=== PATIENT | female | born 2005 | race Caucasian/White ===

== ENCOUNTER 2023-05-15 13:28 | Emergency (ER) | payer OTHER, SELFPAY ==
--- NOTE | 2023-05-15 13:30 | ED_ITS ---
HPI - General Adult General Chief complaint: Nausea/Vomiting/Diarrhea Stated complaint: Vomiting 3 days no appetite Time Seen by Provider: 05/15/23 13:57 Source: patient and family Mode of arrival: ambulatory Limitations: no limitations History of Present Illness HPI narrative: This is a 17-year-old female who has previously healthy who presents to the ER with complaints of 2 days of headache, vomiting, diarrhea and chills. Patient denies any recent travel or sick contact. No abdominal pain, fevers, chills, urinary symptoms. Related Data Previous Rx's Medication Instructions Recorded ondansetron 4 mg disintegrating 4 mg PO Q6H PRN nausea and 05/15/23 tablet vomiting #14 tabs Allergies Allergy/AdvReac Type Severity Reaction Status Date / Time No Known Allergies Allergy Verified 05/15/23 13:32 Review of Systems 2 Review of Systems: Yes all other systems are reviewed and are negative Constitutional: Constitutional: Reports no additional constitutional complaints, Denies body ache(s), Reports chills, Denies fever(s), Reports headache(s) and Denies weakness Eyes: Eyes: Reports no additional eye complaints and Denies change in vision ENT: Reports system reviewed and no additional complaints, except as documented, Denies dizziness, Reports headache(s), Denies nasal congestion, Denies nasal discharge and Denies neck pain Cardiovascular: Cardiovascular: Reports no additional cardiovascular complaints, Denies chest pain, Denies leg edema and Denies dyspnea Respiratory: Respiratory: Reports no additional respiratory complaints, Denies cough and Denies dyspnea Gastrointestinal: Gastrointestinal: Reports no additional gastrointestinal complaints, Denies abdominal pain, Reports diarrhea, Reports nausea and Reports vomiting Genitourinary: Genitourinary: Reports no additional female genitourinary complaints and Denies urinary incontinence Musculoskeletal: Musculoskeletal: Reports no additional musculoskeletal complaints, Denies back pain, Denies arthralgias, Denies joint swelling, Denies neck pain, Denies numbness and Denies tingling Integumentary/Breasts: Skin/Breast: Reports system reviewed and no additional complaints, except as docu and Denies rash Neurologic: Reports system reviewed and no additional complaints, except as documented, Denies Abnormal speech present, Denies dizziness, Reports headache(s), Denies numbness, Denies tingling and Denies weakness [facility] Past Medical History Attestation statement: The following information was validated with the patient. Source: old records reviewed and nursing notes reviewed Social History Social History Advance Directives: No Advance Directives Information Provided: No Physical Exam ED Vital Signs: Vital Signs - 24 hr 05/15/23 13:32 05/15/23 14:56 Temperature 98.0 F Pulse Rate 69 62 Respiratory Rate 18 18 Blood Pressure 130/86 117/69 Pulse Oximetry 97 100 Oxygen Delivery Method Room Air Room Air BMI result Body Mass Index 23.3 Const General: cooperative, healthy appearing, comfortable and no acute distress Orientation/consciousness: patient oriented x3 Limitations: no limitations HENMT Head: Yes normal to inspection Ears: hearing grossly normal bilaterally and TM's normal bilaterally General nose exam: Normal external nose present Face and sinus: Yes normal facial exam Mouth: Normal oral and palatal mucosa present Throat: Yes posterior oropharynx normal, Yes tonsils normal and Yes uvula midline Eyes General: appearance normal, both eyes and all related structures Pupils: Equal, round and reactive pupils present Neck Neck: Yes normal visual inspection, Yes full ROM, Yes no lymphadenopathy and Yes no meningeal signs Chest Chest palpation & inspection: normal inspection of the chest Resp Effort & Inspection: normal respiratory effort Auscultation: clear to auscultation bilaterally Cardio Rate: regular rate Rhythm: regular rhythm Peripheral pulses: Peripheral pulses 2+ throughout GI Inspection: Yes normal to inspection Palpation (GI): Soft to palpation and nontender Auscultation: normal bowel sounds Back/Spine/Pelvis Thoracic/Lumbar Spine: thoracic and lumbar spine normal to inspection Skin General skin exam: no rashes or lesions noted Neuro General: patient oriented x3, no meningeal signs, no focal motor deficits and normal sensation to monofilament Cranial nerves: Yes Equal, round and reactive pupils present Cognition (Neuro): normal cognition Speech: No Abnormal speech present Gait exam (Neuro): Normal gait present Motor exam (neuro): 5/5 motor strength present throughout Extrem General: Yes normal to inspection Course Course Course Narrative: RME performed by Anamika Wolfe PA-C. Patient is a 17 year old assigned female at presenting to the emergency department with nausea and vomiting. Labs and swabs ordered. Patient placed back in the waiting room pending room availability and results. Reevaluation(s) Reevaluation #1: UA shows trace ketones otherwise unremarkable. Labs are unremarkable. test is negative. RSV is positive. No hypoxia or tachypnea. Patient is tolerating cathryn mary with no additional vomiting episodes. Repeat abdominal exam is benign. Patient will be discharged home with Andrea coelho.r.janae. Reviewed worrisome signs and symptoms of when to return to the emergency room. Comfortable plan for discharge home. Medications Administered Discontinued Medications Generic Name Dose Route Start Last Admin Trade Name Freq PRN Reason Stop Dose Admin Sodium Chloride 1,000 mls @ 999 mls/hr 05/15/23 14:09 05/15/23 15:30 Ns IV 05/15/23 15:09 Infused .Q1H1M STA Infusion Ondansetron HCl 4 mg 05/15/23 14:09 05/15/23 14:21 Ondansetron Hcl 4 Mg/2 Ml Vial IVPUSH 05/15/23 14:10 4 mg ONCE ONE Administration Medical Decision Making Medical Decision Making [facility] Narrative: This is a 17-year-old female who has previously healthy who presents to the ER with complaints of 2 days of headache, vomiting, diarrhea and chills.? Patient denies any recent travel or sick contact.? No abdominal pain, fevers, chills, urinary symptoms. On exam no focal abdominal tenderness. Patient reports unable to tolerate p.o. due to vomiting. Therefore we will obtain labs, UA, urine , viral testing. Will place PIV and give antiemetic and IV fluids Differential Diagnosis Differential Diagnoses: The differential diagnosis associated with the presentation includes Low concern for acute appendicitis with no focal abdominal pain Gastroenteritis Viral syndrome Admission/Observation Consideration of admission/observation: Escalation of care including admission/observation considered no intractable vomiting, electrolyte abnormality requiring IVF, electrolyte abnormality and/or admission No hypoxia, not required supplemental oxygen for RSV status Lab Data [facility] Lab Attestation statement: I reviewed the patient's lab results. 05/15/23 14:29 05/15/23 14:29 Labs: Lab Results 05/15/23 05/15/23 05/15/23 Range/Units 13:43 14:29 15:45 WBC 5.3 (4.8-10.8) X10*3/uL RBC 4.66 (4.20-5.50) X10*6/uL Hgb 13.4 (12.0-16.0) g/dl Hct 39.5 (37.0-47.0) % MCV 84.8 (80.0-98.0) fL MCH 28.8 (27.0-33.0) pg MCHC 33.9 (31.0-35.0) g/dl RDW 12.1 (11.0-16.0) % Plt Count 222 (160-400) X10*3/uL MPV 11.4 (9.4-12.3) fL Immature Gran % (Auto) 0.2 (0.0-0.4) % Neut % (Auto) 79.0 H (45-73) % Lymph % (Auto) 11.2 L (20-40) % [place] % (Auto) 9.0 (2-11) % Eos % (Auto) 0.4 (0-4) % Baso % (Auto) 0.2 (0-2) % Lymph # (Auto) 0.6 L (1.2-4.9) X10*3/uL [place] # (Auto) 0.5 (0.1-1.2) X10*3/uL Eos # (Auto) 0.0 (0.0-0.4) X10*3/uL Baso # (Auto) 0.0 (0.0-0.2) X10*3/uL Abs Immat Gran (auto) 0.01 (0.00-0.03) X10*3/uL Absolute Neuts (auto) 4.2 (2.0-8.3) x10*3/uL Absolute Nucleated RBC 0.000 (0.0-0.012) X10*3/uL Nucleated RBC % (auto) 0.0 (0.0-0.2) /100WBC Sodium 139 (135-145) mmol/L Potassium 4.3 (3.3-5.1) mmol/L Chloride 104 (96-108) mmol/L Carbon Dioxide 26 (22-29) mmol/L Anion Gap 13 (12-20) BUN 11 (9-16) mg/dL Creatinine 0.75 (0.5-1.4) mg/dL Estim Creat Clear Calc 104.1 Estimated GFR > 60 Random Glucose 126 H (60-115) mg/dL Calcium 9.8 (8.4-10.2) mg/dL Magnesium 2.0 (1.6-2.6) mg/dL Total Bilirubin 1.3 H (0.0-1.0) mg/dL AST 14 (5-31) U/L ALT 5 (0-31) U/L Alkaline Phosphatase 64 (39-117) U/L Total Protein 7.8 (6.5-8.0) g/dL Albumin 4.6 (3.5-5.0) g/dL Lipase 10 (8-78) U/L Beta HCG, Quant < 2 mIU/mL Urine Color Yellow Urine Appearance Clear Urine pH 6.0 (5.0-9.0) Ur Specific [place] 1.010 (1.005-1.025) Urine Protein Trace (Neg-Trace) mg/dL Urine Glucose (UA) Negative (Negative) mg/dL Urine Ketones 15 (Negative) mg/dL Urine Blood Negative (Negative) Urine Nitrite Negative (Negative) Ur Leukocyte Esterase Negative (Negative) Influenza Type A (PCR) NEGATIVE (Negative) Influenza Type B (PCR) NEGATIVE (Negative) RSV RNA Qual (PCR) POSITIVE A (Negative) SARS-CoV-2 RNA (RT-PCR) NEGATIVE (Negative) Independent Historian Clinical information obtained from an independent historian. History obtained from or confirmed by: Friend Tests considered The following testing was considered but not selected: No focal abdominal pain to suggest need for CT abdomen and pelvis Discharge Plan Discharge Clinical Impression: Respiratory syncytial virus (RSV) Patient Disposition: Home, Self-Care Instructions: Respiratory Syncytial Virus (ED) Additional Instructions: Start with clear liquids and advance her diet as tolerated. Return for any worsening symptoms Testing for covid/flu are negative Blood work is re-assuring Prescriptions: New ondansetron 4 mg tablet,disintegrating 4 mg PO Q6H PRN (Reason: nausea and vomiting) Qty: 14 0RF Referrals: Physician,Unknown J [Primary Care Provider] - 1 week Stand Alone Forms: Work/School Release
[2023-05-15 13:32] VITALS: BP 130/86; PULSE 69; RESP 18; TEMP 36.7; O2SAT 97; BMI 23.3
--- OUTSIDE RECORDS SUMMARY | 2023-05-15 14:03 | XMS_ITS | Continuity of Care Document ---
Author Name Unknown Organization [facility] ter Address [address] [place] [id number]- Care Team Providers Care Cooler Service Supervisor Name Role Phone George Mcdonald MD, Zeina Primary Care Tarsha watson [place] [facility] [place] 12/10/21 - 12/10/[address] [address]- Discharge Disposition: A-D/C Walkout Attending Physician: Not on Staff, Attending MD Admitting Physician: Not on Staff, Admitting MD Referring Physician: Not on Staff, Referring MD Allergies, Adverse Reactions, Alerts No Known Allergies Immunizations Given and Recorded Vaccine Date Status Refusal Reason influenza virus vaccine, live 06/18/13 Given influenza virus vaccine, live 05/17/12 Given influenza virus vaccine, inactivated 09/08/11 Give n diphtheria/tetanus/pertussis, acel(DTaP) 08/02/07 Given diphtheria/tetanus/pertussis, acel(DTaP) 01/08/05 Given diphtheria/tetanus/pertussis, acel(DTaP) 01/16/04 Given diphtheria/tetanus/pertussis, acel(DTaP) 03 Given diphtheria/tetanus/pertussis, acel(DTaP) 03 Given Varicella Virus Vaccine 08/02/07 Given Varicella Virus Vaccine 08/10/04 Given Measles/Mumps/Rubella Virus Vaccine 08/02/07 Given Measles/Mumps/Rubella Virus Vaccine 08/10/04 Given Poliovirus Vaccine, Inactivated 08/02/07 Given Poliovirus Vaccine, Inactivated 01/08/05 Given Poliovirus Vaccine, Inactivated 01/16/04 Given Poliovirus Vaccine, Inactivated 03 Given tetanus/diphtheria/pertussis, acel(Tdap) 1 08/02/07 Given Haemophilus B conjugate (HbOC) vaccine 03/08/06 Gi xenia Haemophilus B conjugate (HbOC) vaccine 01/16/04 Gi xenia Haemophilus B conjugate (HbOC) vaccine 03 Gi xenia Haemophilus B conjugate (HbOC) vaccine 03 Gi xenia hepatitis B pediatric vaccine 01/16/04 Given hepatitis B pediatric vaccine 03 Given hepatitis B pediatric vaccine 03 Given pneumococcal 13-valent vaccine 01/16/04 Given pneumococcal 13-valent vaccine 03 Given pneumococcal 13-valent vaccine 03 Given 1Result Comment: error Medications ibuprofen 400 mg oral tablet 1 tablet = 400 mg, By Mouth, Every 6 hours, PRN for pain, with food or milk, # 20 tablet, 0 Refills, Maintenance, 11/11/14 19:58:27, Tablet Start Date: 11/11/14 Stop Date: 11/14/14 Status: Ordered Melatonin By Mouth, Daily at bedtime, PRN Sleep, 0 Refills, Maintenance Start Date: 06/04/13 Status: Ordered Problem List Condition Effective Dates Status Health Status Inform ant Academic underachievement(Confirmed) 1 Active Obstructive sleep apnea syndrome(Confirmed) Active 1?ADHD or other learning disability. Further workup under way. Results Radiology Reports * Exam Date Time Procedure Performing Provider Status 12/10/21 6:10 AM Knee 1 or 2 Views Right Jayden Rodriguez ph; Auth (Verified) Notes: (Knee 1 or 2 Views Right) Reason For Exam: Pain RESULT: Knee 1 or 2 Views Right Knee 1 or 2 Views Right, 2 views Hx of Present Illness: R knee pain; Reason: Pain; Clinical Question(s): Fracture; Special Instructions: Patella ([place]) COMPARISON: None. FINDINGS: No evidence of fracture or dislocation. IMPRESSION: Normal. WSN: [id number] Ordering Physician: Khanh Mallory Dictated By: Shayan Monge MD Dictated Date/Time: 12/10/21 8:11 am Reviewed By: Shayan Monge MD Signed By: Shayan Monge MD Signed Date/Time: 12/10/21 8:11 am Transcribed By: KIT Transcribed Date/Time: 12/10/21 8:11 am Vital Signs Most recent to oldest [Reference Range]: 1 Oxygen Saturation [94-100 %] 99 % (12/10/21 5:49 AM) Pulse Rate [55-90 bpm] 94 bpm *H* (12/10/21 5:49 AM) Blood Pressure [71-110/30-71 mm Hg] 130/ 73mm Hg *H* (12/10/21 5:49 AM) Respiratory Rate [16-30 br/min] 18 br/mi n (12/10/21 5:49 AM) Temperature [96.8-100.4 DegF] 98.3 DegF (12/10/21 5:49 AM) Mode of Delivery (Oxygen) Room air (12/10/21 5:49 AM) Blood pressure sites Arm, right (12/10/21 5:49 AM) Temperature Route Oral (12/10/21 5:49 AM)
--- OUTSIDE RECORDS SUMMARY | 2023-05-15 14:03 | XMS_ITS | Continuity of Care Document ---
Author Name Unknown Organization [facility] ter Address [address] [place] [id number]- Care Team Providers Care Reel Operator Name Role Phone George Mcdonald MD, Zeina Primary Care Tarsha watson En[place] [facility] [place] Date(s): 11/25/22 - 11/25/[address] [address]- Discharge Disposition: A-D/C Walkout Attending Physician: Not [...] Date: 06/04/13 Status: Ordered Problem List Condition Confirmation Course Effective Dates Status H ealth Status Informant Academic underachievement 1 Confirmed Active Obstructive sleep apnea syndrome Confirmed Active 1?ADHD or other learning disability. Further workup under way. Vital Signs Most recent to oldest [Reference Range]: 1 2 3 Oxygen Saturation [94-100 %] 100 % (11/25/22 5:34 PM) 100 % (11/25/22 3:25 PM) 98 % (11/25/22 1:23 PM) Pulse Rate [55-90 bpm] 65 bpm (11/25/22 5:34 PM) 72 bpm (11/25/22 3:25 PM) 93 bpm *H* (11/25/22 1:23 PM) Blood Pressure [90-138/55-84 mm Hg] 129/68mm Hg (11/25/22 5:34 PM) 124/68mm Hg (11/25/22 3:25 PM) 134/92mm Hg (11/25/22 1:23 PM) Respiratory Rate [16-30 br/min] 18 br/min (11/25/22 5:34 PM) 18 br/min (11/25/22 1:23 PM) Temperature [96.8-100.4 DegF] 97.9 DegF (11/25/22 5:34 PM) 97.9 DegF (11/25/22 3:25 PM) 98.1 DegF (11/25/22 1:23 PM) Mode of Delivery (Oxygen) Room air (11/25/22 5:34 PM) Room air (11/25/22 3:25 PM) Room air (11/25/22 1:23 PM) Blood pressure sites Arm, right (11/25/22 5:34 PM) Arm, right (11/25/22 3:25 PM) Arm, left (11/25/22 1:23 PM) Temperature Route Oral (11/25/22 5:34 PM) Oral (11/25/22 3:25 PM) Oral (11/25/22 1:23 PM) Patient Care team information Care Team Personnel Name: Zeina Gauthier MD Position: [facility] General Pediatrics MD Member Role: PCP Address: Address: [address] [place] [address], [address] [facility] [address] Name: Aron Nieto MD Position: [facility] Physician (General Medicine) Member Role: Lifetime Consulting Physician Address: Address: [address] [place] [address], [address] Care Team Related Persons Name: EDI CRAWFORD Address: [address] [place] [address] Name: EDI CRAWFORD Address: [address] [place] [address]
[2023-05-15] MEDS: 0.9 % Sodium Chloride 1,000 ML 999 ML IV (14:21)
[2023-05-15] MEDS: ondansetron HCL 4 MG/2 ML VIAL IVPUSH (14:21)
[2023-05-15 14:32] LABS: Influenza A PCR NEGATIVE (Negative); Influenza B PCR NEGATIVE (Negative); Resp Syncy Virus RNA Qual PCR POSITIVE (Negative); SARS COV2 PCR INHOUSE NEGATIVE (Negative)
[2023-05-15 14:33] LABS: MANUAL DIFF FLAG NO
[2023-05-15 14:36] LABS: Basophils Percent Auto 0.2 % (0-2); Eosinophils Percent Auto 0.4 % (0-4); Hematocrit 39.5 % (37.0-47.0); Hemoglobin 13.4 g/dl (12.0-16.0); Imm Gran Abs Auto 0.01 X10*3/uL (0.00-0.03); Imm Gran Pct Auto 0.2 % (0.0-0.4); Lymphocytes Absolute Auto 0.6 X10*3/uL (1.2-4.9); Lymphocytes Percent Auto 11.2 % (20-40); Mean Corpuscular HGB Conc 33.9 g/dl (31.0-35.0); Mean Corpuscular Hemoglobin 28.8 pg (27.0-33.0); Mean Corpuscular Volume 84.8 fL (80.0-98.0); Mean Platelet Volume 11.4 fL (9.4-12.3); Monocytes Absolute Auto 0.5 X10*3/uL (0.1-1.2); Neutrophils Absolute Auto 4.2 x10*3/uL (2.0-8.3); Platelet Count 222 X10*3/uL (160-400); Red Blood Count 4.66 X10*6/uL (4.20-5.50); Red Cell Distribution Width 12.1 % (11.0-16.0); White Blood Count 5.3 X10*3/uL (4.8-10.8)
[2023-05-15 14:56] VITALS: BP 117/69; PULSE 62; RESP 18; O2SAT 100
[2023-05-15 14:57] LABS: Alanine Aminotransferase 5 U/L (0-31); Albumin Level 4.6 g/dL (3.5-5.0); Alkaline Phosphatase 64 U/L (39-117); Anion Gap 13 (12-20); Aspartate Amino Transferase 14 U/L (5-31); Bilirubin Total 1.3 mg/dL (0.0-1.0); Blood Urea Nitrogen 11 mg/dL (9-16); Calcium 9.8 mg/dL (8.4-10.2); Carbon Dioxide 26 mmol/L (22-29); Chloride 104 mmol/L (96-108); Creatinine Clr Calc Pharmacy 104.1; Estimated Glomerular Filt Rate > 60; Glucose Random 126 mg/dL (60-115); Lipase 10 U/L (8-78); Potassium 4.3 mmol/L (3.3-5.1); Sodium 139 mmol/L (135-145); Total Protein 7.8 g/dL (6.5-8.0)
[2023-05-15 15:10] LABS: HCG Quantitative < 2 mIU/mL
--- NOTE | 2023-05-15 15:30 | PC.NURSE ---
patient given cathryn mary and crackers for PO trial.
[2023-05-15 15:53] LABS: Appearance Urine Clear; Color Urine Yellow; Glucose Urine UA Negative (Negative); Leukocyte Esterase Urine Negative (Negative); Nitrite Urine Negative (Negative); Urine Blood Negative (Negative); Urine Ketones 15 mg/dL (Negative); Urine Protein Trace mg/dL (Neg-Trace)
== END 2023-05-15 16:11 | disposition home or self-care (01) ==
PROVIDERS: Physician Assistant Medical; Emergency Provider Emergency Medicine Emergency Medical Services
DX: R11.2 Nausea with vomiting, unspecified (principal); B97.4 Respiratory syncytial virus as the cause of diseases classified elsewhere; R51.9 Headache, unspecified; Z20.822 Contact with and (suspected) exposure to COVID-19; Z20.828 Contact with and (suspected) exposure to other viral communicable diseases
CPT/HCPCS: 0241U; 36415; 80053; 81003; 83690; 83735; 84702; 85025; 96361; 96374; 99284; J2405

== ENCOUNTER 2024-03-05 09:46 | Emergency (ER) | payer OTHER, SELFPAY ==
--- NOTE | ~2024-03-05 | CT_ITS ---
EXAMINATION: CT ABDOMEN AND PELVIS WITH CONTRAST CLINICAL INFORMATION: abd pain high bili COMPARISON: None. TECHNIQUE: Multidetector volumetric imaging was performed from the superior aspect of the liver through the pubic symphysis following administration of 85 mL Omnipaque 300 intravenous contrast. Sagittal and coronal reformatted images were obtained on the technologist workstation.. This CT examination was performed using dose optimization techniques as appropriate, variously including the following: *Automated exposure control *Adjustment of mA and/or kV according to patient size (this includes techniques or standardized protocols for targeted exams where dose is matched to indication/reason for exam; i.e. extremities or head) *Use of iterative reconstruction technique DLP: 306 mGy-cm FINDINGS: LUNG BASES: The visualized lung bases are unremarkable. LIVER, GALLBLADDER, AND BILIARY TREE: The liver is normal in size, shape, and attenuation. No focal hepatic lesion or biliary ductal dilatation is present. The gallbladder is unremarkable with no evidence of radiopaque gallstones, gallbladder wall thickening, or obvious pericholecystic inflammatory changes. PANCREAS: Unremarkable. SPLEEN: Unremarkable. ADRENAL GLANDS: Unremarkable. KIDNEYS AND URETERS: The kidneys are normal in size, shape, and attenuation. No hydronephrosis, hydroureter, or perinephric stranding. No calculi. BLADDER: Unremarkable. GASTROINTESTINAL TRACT: The small and large bowel are unremarkable. The appendix is unremarkable. ABDOMINAL WALL: No significant hernia is appreciated. LYMPHOVASCULAR STRUCTURES: No lymphadenopathy. The aorta is unremarkable. PELVIC VISCERA: Physiologic changes seen with small amount of likely physiologic free fluid in the dependent pelvis OSSEOUS STRUCTURES: Unremarkable. CT/CT abdomen pelvis w IV con IMPRESSION: I do not appreciate any acute intra-abdominal process. Physiologic changes seen. Specifically I do not appreciate any discrete abnormality in the region of the liver or biliary system. Electronically signed by: Shayan Sotelo MD 03/05/2024 04:09 PM EDT RP
[2024-03-05 09:59] VITALS: BP 141/88; PULSE 66; RESP 18; TEMP 36.7; O2SAT 100; BMI 21.5
[2024-03-05 10:27] LABS: MANUAL DIFF FLAG NO
[2024-03-05 10:29] LABS: Basophils Percent Auto 0.7 % (0-2); Eosinophils Absolute Auto 0.1 X10*3/uL (0.0-0.4); Eosinophils Percent Auto 3.1 % (0-4); Hematocrit 38.4 % (37.0-47.0); Hemoglobin 13.3 g/dl (12.0-16.0); Imm Gran Abs Auto 0.01 X10*3/uL (0.00-0.03); Imm Gran Pct Auto 0.2 % (0.0-0.4); Lymphocytes Percent Auto 22.1 % (20-40); Mean Corpuscular HGB Conc 34.6 g/dl (31.0-35.0); Mean Corpuscular Hemoglobin 30.2 pg (27.0-33.0); Mean Corpuscular Volume 87.3 fL (80.0-98.0); Mean Platelet Volume 11.1 fL (9.4-12.3); Monocytes Absolute Auto 0.5 X10*3/uL (0.1-1.2); Monocytes Percent Auto 9.8 % (2-11); Neutrophils Absolute Auto 2.9 x10*3/uL (2.0-8.3); Neutrophils Percent Auto 64.1 % (45-73); Platelet Count 238 X10*3/uL (160-400); Red Cell Distribution Width 12.3 % (11.0-16.0); White Blood Count 4.6 X10*3/uL (4.8-10.8)
[2024-03-05 10:54] LABS: Alanine Aminotransferase 10 U/L (0-31); Albumin Level 4.6 g/dL (3.5-5.0); Alkaline Phosphatase 53 U/L (39-117); Anion Gap 14 (12-20); Aspartate Amino Transferase 16 U/L (5-31); Bilirubin Total 2.2 mg/dL (0.0-1.0); Blood Urea Nitrogen 7 mg/dL (9-16); Calcium 9.9 mg/dL (8.4-10.2); Carbon Dioxide 24 mmol/L (22-29); Chloride 106 mmol/L (96-108); Creatinine Clr Calc Pharmacy 99.3; Estimated Glomerular Filt Rate > 60; Glucose Random 105 mg/dL (60-115); Sodium 140 mmol/L (135-145); Total Protein 7.3 g/dL (6.5-8.0)
--- NOTE | 2024-03-05 13:30 | MHC.EDTECH ---
provided patient with urine cup for sample with instructions on how to perform a clean catch. Patient expressed understanding.
[2024-03-05 13:50] LABS: Appearance Urine Clear; Color Urine Yellow; Glucose Urine UA Negative (Negative); Leukocyte Esterase Urine Small (1+) (Negative); Nitrite Urine Negative (Negative); UMIC TRIGGER UACC YES; Urine Blood Large (3+) (Negative); Urine Ketones >=160 mg/dL (Negative); Urine Protein 30 (1+) mg/dL (Neg-Trace)
[2024-03-05 13:52] LABS: Bacteria Urine None Seen (None Seen); Hyaline Casts Urine 0-2 /LPF (0-2); RBC Urine >20 /HPF (0-2); UACC Culture Trigger YES
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
[2024-03-05 14:08] LABS: UPreg QC Valid YES
[2024-03-05 14:09] LABS: Urine Pregnancy NEGATIVE (NEGATIVE)
[2024-03-05] MEDS: iohexoL 350 MG/ML 100 ML INFUS..BTL IV (15:23)
[2024-03-05 16:36] VITALS: BP 117/75; PULSE 59; RESP 14; TEMP 36.8; O2SAT 99
== END 2024-03-05 16:40 | disposition home or self-care (01) ==
PROVIDERS: Physician Assistant; Emergency Provider Emergency Medicine
DX: F41.9 Anxiety disorder, unspecified (principal); R11.2 Nausea with vomiting, unspecified; R19.7 Diarrhea, unspecified
CPT/HCPCS: 36415; 74177; 80053; 81001; 81025; 85025; 87086; 87147; 99282; 99284; Q9967

== ENCOUNTER 2024-08-12 09:40 | Emergency (ER) | payer MEDICAID, SELFPAY ==
--- NOTE | 2024-08-12 | ECG_ITS ---
Test Reason : ABD PAIN Blood Pressure : */* mmHG Vent. Rate : 64 BPM Atrial Rate : 64 BPM P-R Int : 118 ms QRS Dur : 84 ms QT Int : 406 ms P-R-T Axes : 64 73 51 degrees QTcB Int : 418 ms Normal sinus rhythm ST elevation, consider early repolarization Borderline ECG No previous ECGs available Referred By: Generic ED Physician Electronically Signed By: BOO SAXENA MD
[2024-08-12 09:43] VITALS: BP 151/98; PULSE 62; RESP 18; TEMP 36.1; O2SAT 100; BMI 22.9
--- OUTSIDE RECORDS SUMMARY | 2024-08-12 09:58 | XMS_ITS | Encounter Summary ---
Author Organization [facility] Address [address] [place] [address] Phone Care Team Providers Care Tipping Machine Operator Automatic Name Role Phone Zeina Gauthier MD Primary Care Pro vider Encounter Details Date Type Department Care Team (Late st Contact Info) Description 09/01/2017 Conversion Encounter [facility] [address] [phone] Zeina Gauthier MD [address] [address] Social History Tobacco Use Types Packs/Day Years Used Date Smoking Tobacco: Never Comments:Never Comments Unknown Sex and Gender Information Value Date Recorded Sex Assigned at Not on file Legal Sex Female 12:17 PM EST Gender Identity Female 07/20/2023 10:54 PM EST Sexual Orientation Straight 03/01/2019 3: 38 PM EDT documented as of this encounter Plan of Treatment Not on file documented as of this encounter Visit Diagnoses Not on filedocumented in this encounter Care Teams Tipping Machine Operator Automatic Relationship Specialty Start Date End Date Zeina Gauthier MD [address] [address] PCP - General 06/15/17 documented as of this encounter
--- OUTSIDE RECORDS SUMMARY | 2024-08-12 09:58 | XMS_ITS | Clinical Summary ---
Author Organization [facility] Address [address] [facility] [address] [place] [address] Phone Care Team Providers Care Marine Electronics Repairer Name Role Phone Zeina Kramer MD Primary Care Pro vider Allergies No known active allergies Medications No known medications Active Problems Problem Noted Date Diagnosed Date Academic underachievement 02/22/20232022 Overview (02/22/2023): ?ADHD or other learning disability. Further workup under way. Backache 02/22/2023 02/22/2023 Leukopenia 02/22/2023 02/22/2023 Obstructive sleep apnea syndrome 02/22/2023 02/22/2023 Proteinuria 02/22/2023 02/22/2023 Sterile pyuria 02/22/2023 02/22/2023 Bacterial vaginosis 12/09/2022 02/22/2023 Current drinker 11/25/2022 02/22/2023 Overview (02/22/2023): [facility] emergency room visit for nausea, LWBS, too long wait. At increased risk of sexually transmitted infect ion 02/06/2020 Overview (02/22/2023): Continues prior unsafe sex behaviors. Safe sex discussed at length Last Assessment & Plan: Pt education on abstinence or consistent condom use; pt has consultation w/ electrotype caster later this month Dysmenorrhea 02/06/2020 02/22/2023 Overview (02/22/2023): Last Assessment & Plan: See menstrual hx; pt has appt consult w/ Dr. Cavanaugh's electrotype caster group later this month Wears glasses 02/06/2020 02/22/2023 Adjustment disorder with mix ed disturbance of emotions AND conduct 02/28/2018 02/22/2023 Overview (02/22/2023): Last Assessment & Plan: She is adjusting much anuja now, no therapist At this point she does talk to counselor at school sometimes Problem behavior 02/07/2018 02/22/2023 Immunizations Name Administration Dates Next Due DTaP 08/02/2007, 5,01/16/2004,10/29,2003 HPV, Unspecified 10/18/2016,03/25/2016, 6 Hep A, 2 Dose 10/18/2016,03/25/2016 Hep B, Adolescent or Pediatric 01/16/2004,2003,2003 HiB 03/08/2006, 4,2003,08/28 Hib (HbOC) 03/08/2006, 4,2003,08/28 IPV 08/02/2007, 5,01/16/2004,08/28 Influenza Split High Dose Pr eservative Free IM 05/03/2016 Influenza TIV (IM) 06/14/2014 Influenza, Quadrivalent, Intranasal 06/18/2013,1 07/17/2011 Influenza, Quadrivalent, Pre servative Free 10/10/2020,03/25/2016,08/07/2015 Influenza, Unspecified 09/08/2011,09/08/2011 MMR 08/02/2007,08/10/2004 Meningococcal MCV4P 02/06/2020,08/07/2015 Pneumococcal Conjugate 13-Valent 01/16/2004,10/03,2003 Tdap 08/07/2015,08/02/2007 Varicella 08/02/2007,08/10/2004 Family History Relation Status Comments Father Alive Mother Alive Social History Tobacco Use Types Packs/Day Years Used Date Smoking Tobacco: Never Smokeless Tobacco: Current Tobacco Cessation:Ready to Q uit: Not Asked; Counseling Given: Not Answered Alcohol Use Standard Drinks/Week Comments Not Currently 0 (1 standard drink = 0.6 oz pur e alcohol) Comments Unknown Sex and Gender Information Value Date Recorded Sex Assigned at Not on file Legal Sex Female 4:43 PM EST Gender Identity Not on file Sexual Orientation Not on file Last Filed Vital Signs Vital Sign Reading Time Taken Comments Blood Pressure 120/65 02/24/2023 12:27 PM EDT Pulse 65 02/24/2023 12:27 PM EDT Temperature - - Respiratory Rate - - Oxygen Saturation 99% 02/24/2023 12:27 PM EDT Inhaled Oxygen Concentration - - Weight 64.7 kg (142 lb 9.6 oz) 02/24/2023 12:27 PM EDT Height 165.1 cm (5' 5 ) 02/24/2023 12:27 PM EDT Body Mass Index 23.73 02/24/2023 12:27 PM EDT Plan of Treatment Health Maintenance Due Date Last Done Comments Pneumococcal Vaccine: Pediat rics (0 to 5 Years) and At-Risk Patients (6 to 64 Years) (1 of 3 - PPSV23 or PCV20) 03/12/2004 01/16/2004, 2003, 2003 Influenza Vaccine (#1) 2024 , 05/03/2016, 03/25/2016, Additional history exists Hepatitis B Vaccine Completed 01/16/2004, 2003, 2003 Insurance [facility] [place] [address] [place] [address] MEDICAID Care Teams Marine Electronics Repairer Relationship Specialty Start Date End Date Zeina Kramer MD [address] [place] [id number] PCP - General 07/14/20
--- OUTSIDE RECORDS SUMMARY | 2024-08-12 09:58 | XMS_ITS | Encounter Summary ---
Author Organization [facility] Address [address] [place] [address] Phone Care Team Providers Care Criminal Researcher Name Role Phone Zeina Gauthier MD Primary Care Pro vider Reason for Visit * Reason Comments Med Refill Encounter Details Date Type Department Care Team (Late st Contact Info) Description 11/01/2020 Refill [facility] [address] [phone] Zeina Gauthier MD [address] [address] Confluent and reticulated papillomatosis (CARP) Social History Tobacco Use Types Packs/Day Years Used Date Smoking Tobacco: Never Comments:tried vape one time Alcohol Use Standard Drinks/Week Comments No 0 (1 standard drink = 0.6 oz pur e alcohol) Hunger/Food Answer Date Recorded In the last 12 months, did y ou or your family ever eat less than you felt you should because there wasn't enough money for food? No 02/06/2020 Stable Housing Answer Date Recorded Are you worried that in the next 2 months you may not have stable housing? No 02/06/2020 Transportation Concerns Answer Date Rec orded In the last 12 months, have you or your family ever had to go without healthcare because you didn't have a way to get there? No 02/06/2020 Hazards in Home Answer Date Recorded Think about the place you li ve. Do you have problems with any of the following? Pests (mice or roaches), mold, no/not working smoke detectors, water leaks, no window guards. No 2019 Financing Utilities Answer Date Recorde d In the last 12 months, has t he electric, gas, oil, or water company threatened to shut off your services in your home? No 02/06/2020 Safety at Home Answer Date Recorded Are you or your family worried about feeling saf e in your home? No 02/06/2020 Outside Support Answer Date Recorded Do you feel that you need mo re support from other people or programs to help you care for yourself or your family? No 02/06/2020 Understanding Health Concerns Answer Da te Recorded Do you need help understandi ng your or your child's healthcare needs (diagnosis, medications, plan, etc.)? No 02/06/2020 Financing Health Concerns Answer Date R ecorded In the last 12 months, was t here a time when your child needed to see a doctor or get medications or supplies but could not because of cost? No 02/06/2020 Missing School or Work Answer Date Brady rded Did you or your child miss s chool or work because of a health problem that could have been avoided? No 02/06/2020 Comments No Sex and Gender Information Value Date Recorded Sex Assigned at Not on file Legal Sex Female 12:17 PM EST Gender Identity Female 07/20/2023 10:54 PM EST Sexual Orientation Straight 03/01/2019 3: 38 PM EDT documented as of this encounter Plan of Treatment Not on file documented as of this encounter Visit Diagnoses Diagnosis Confluent and reticulated papillomatosis (CARP) documented in this encounter Care Teams Criminal Researcher Relationship Specialty Start Date End Date Zeina Gauthier MD [address] [place] [address] PCP - General 06/15/17 documented as of this encounter
--- OUTSIDE RECORDS SUMMARY | 2024-08-12 09:58 | XMS_ITS | Encounter Summary ---
Author Organization [facility] Address [address] [place] [address] Phone Care Team Providers Care Latex Ribbon Machine Operator Name Role Phone Zeina Gauthier MD Primary Care Pro vider Reason for Visit * Reason Comments Med Refill Encounter Details Date Type Department Care Team (Late st Contact Info) Description 04/02/2024 Refill [facility] [address] [phone] Zeina Gauthier MD [address] [address] Anxiety and depression Social History Tobacco Use Types Packs/Day Years Used Date Smoking Tobacco: Never Comments:tried vape one time Alcohol Use Standard Drinks/Week Comments No 0 (1 standard drink = 0.6 oz pur e alcohol) Hunger/Food Answer Date Recorded In the last 12 months, did y ou or your family ever eat less than you felt you should because there wasn't enough money for food? No 12/06/2022 Stable Housing Answer Date Recorded Are you worried that in the next 2 months you may not have stable housing? No 12/06/2022 Transportation Concerns Answer Date Rec orded In the last 12 months, have you or your family ever had to go without healthcare because you didn't have a way to get there? No 12/06/2022 Hazards in Home Answer Date Recorded Think about the place you li ve. Do you have problems with any of the following? Pests (mice or roaches), mold, no/not working smoke detectors, water leaks, no window guards. No 2022 Financing Utilities Answer Date Recorde d In the last 12 months, has t he electric, gas, oil, or water company threatened to shut off your services in your home? No 12/06/2022 Safety at Home Answer Date Recorded Are you or your family worried about feeling saf e in your home? No 12/06/2022 Outside Support Answer Date Recorded Do you feel that you need mo re support from other people or programs to help you care for yourself or your family? No 12/06/2022 Understanding Health Concerns Answer Da te Recorded Do you need help understandi ng your or your child's healthcare needs (diagnosis, medications, plan, etc.)? No 12/06/2022 Financing Health Concerns Answer Date R ecorded In the last 12 months, was t here a time when your child needed to see a doctor or get medications or supplies but could not because of cost? No 12/06/2022 Missing School or Work Answer Date Brady rded Did you or your child miss s chool or work because of a health problem that could have been avoided? No 12/06/2022 Comments No Sex and Gender Information Value Date Recorded Sex Assigned at Not on file Legal Sex Female 12:17 PM EST Gender Identity Female 07/20/2023 10:54 PM EST Sexual Orientation Straight 03/01/2019 3: 38 PM EDT documented as of this encounter Miscellaneous Notes * Telephone Encounter - Sierra [place] - 04/05/2024 9:47 AM EDT Left a voicemail to book appointment if refill is needed. documented in this encounter Plan of Treatment Not on file documented as of this encounter Visit Diagnoses Diagnosis Anxiety and depression documented in this encounter Care Teams Latex Ribbon Machine Operator Relationship Specialty Start Date End Date Zeina Gauthier MD [address] [place] [address] PCP - General 06/15/17 documented as of this encounter
--- OUTSIDE RECORDS SUMMARY | 2024-08-12 09:58 | XMS_ITS | Encounter Summary ---
Author Organization [facility] Address [address] [place] [address] Phone Care Team Providers Care Sharepoint Architect Name Role Phone Zeina Gauthier MD Primary Care Pro vider Reason for Visit * Reason Comments ED Admission Encounter Details Date Type Department Care Team (Late st Contact Info) Description 08/12/2024 9:40 AM EST - Present Hospital Encounter [facility] - Patient Ping Social History Tobacco Use Types Packs/Day Years [...] on filedocumented in this encounter Care Teams Sharepoint Architect Relationship Specialty Start Date End Date Zeina Gauthier MD [address] [place] [address] PCP - General 06/15/17 documented as of this encounter
--- OUTSIDE RECORDS SUMMARY | 2024-08-12 09:58 | XMS_ITS | Clinical Summary ---
Author Organization [facility] Address [address] [place] [phone] Phone Care Team Providers Care Formulation Chemist Name Role Phone Zeina Gauthier MD Primary Care Pro vider Allergies No known active allergies Medications ibuprofen 200 MG capsule Take 200 mg by mouth every 6 (six) hours as needed. Active Pseudoeph-Doxyl taedi-LZ-TYBV (NYQUIL PO) Take by mouth. Act teagan 07/23 1-20 MG-MCG per tablet 1 Active escitalopram (Lexapro) 10 MG tabletIndicatio ns:Anxiety and depression Take 1 tablet (10 mg total) by mouth every morning. 30 tablet 4 Active Additional Information Patient not taking.Reported on 03/16/2024 Active Problems Problem Noted Date Diagnosed Date Anxiety and depression 03/16/2024 Overview (03/16/2024): Daija met w/camilo Chong clinician today and will consider restarting her medications and allowing her body to get used to them. Carrier of group B Streptococcus 08/05/2023 Leukopenia 02/22/2023 Alcohol use 11/25/2022 Overview (12/16/2022): [facility] emergency room visit for nausea, LWBS, too long wait. Risk for sexually transmitted infection 02/06/20 20 Overview (03/16/2024): Continues prior unsafe sex behaviors. Safe sex discussed at length Continues prior unsafe sex behaviors. Safe sex discussed at length Last Assessment & Plan: Pt education on abstinence or consistent condom use; pt has consultation w/ camp housekeeper later this month Continues prior unsafe sex behaviors. Safe sex discussed at length Last Assessment & Plan: Pt education on abstinence or consistent condom use; pt has consultation w/ camp housekeeper later this month Assessment & Plan (02/06/2020 5:04 PM EDT): Pt education on abstinence or consistent condom use; pt has consultation w/ camp housekeeper later this month Dysmenorrhea in adolescent 02/06/2020 Assessment & Plan (02/06/2020 5:05 PM EDT): See menstrual hx; pt has appt consult w/ Dr. Cavanaugh's camp housekeeper group later this month Wears glasses 02/06/2020 Adjustment disorder with mix ed disturbance of emotions and conduct 02/28/2018 Assessment & Plan (03/01/2019 3:42 PM EDT): She is adjusting much anuja now, no therapist At this point she does talk to counselor at school sometimes Academic underachievement 02/12/2018 Overview (08/04/2023): ?ADHD or other learning disability. Further workup under way. ?ADHD or other learning disability. Further workup under way. ?ADHD or other learning disability. Further workup under way. Assessment & Plan (03/01/2019 3:42 PM EDT): [employer] student, working on improving Her grades Behavior problem 02/07/2018 Proteinuria 02/07/2018 Overview (08/05/2023): Orthostatic, seen by Clothes Designer in 2019, follow Up in 6 months was Missed, she will make a follow up appointment Assessment & Plan (02/06/2020 5:02 PM EDT): Pt is followed nephrology every 6 mo per mom Resolved Problems Problem Noted Date Diagnosed Date Resolved Date Bacterial vaginosis 12/09/2022 08/09/19 24 Encounters Date Type Department Care Team Description 08/12/2024 9:40 AM EST - Present Hospital Encounter [facility] - Patient Liliana from Last 3 Months Immunizations Immunization Administration Dates Next Due DTaP 08/02/2007, 5,01/16/2004,10/29,2003 HPV Vaccine 9 Valent 10/18/2016,03/25/2016,08/07 Hep A, ped/adol 10/18/2016,03/25/2016 Hep B, ped/adol 01/16/2004,2003,2003 HiB 03/08/2006, 4,2003,08/28 IPV 08/02/2007, 5,01/16/2004,08/28 Influenza 09/08/2011 Influenza, injectable, quadr ivalent, preservative free 08/05/2023,10/10/2020,03/25/2016,08/07 Influenza, injectable, trivalent 06/14/2014 Influenza, intranasal, trivalent 06/18/2013,05/04 MMR 08/02/2007,08/10/2004 Meningococcal B Trumenba 03/08/2024 Meningococcal Conj (Menactra) MCV4P 02/06/2020,0 08/07/2015 Pneumococcal Conjugate 13-Valent 01/16/2004,10/03,2003 Tdap 08/07/2015,08/02/2007 Varicella 08/02/2007,08/10/2004 Family History Medical History Relation Name Comments Thyroid disease Father Skin cancer Maternal Grandfather Diabetes Maternal Grandmother Hypertension Maternal Grandmother Parkinsonism Paternal Grandfather Relation Name Status Comments Father Hypothyroidism Maternal Grandfather Maternal Grandmother Paternal Grandfather Social History Tobacco Use Types Packs/Day Years [...] Orientation Straight 03/01/2019 3: 38 PM EDT Last Filed Vital Signs Vital Sign Reading Time Taken Comments Blood Pressure 115/70 03/16/2024 1:05 PM EDT Pulse 75 03/16/2024 1:05 PM EDT Temperature 36.4 ??C (97.6 ??F) 03/16/2024 1:05 PM ED T Respiratory Rate - - Oxygen Saturation 99% 07/02/2019 11:43 AM EST Inhaled Oxygen Concentration - - Weight 56.7 kg (125 lb) 03/16/2024 1:05 PM EDT Height 162.6 cm (5' 4 ) 03/16/2024 1:05 PM EDT Body Mass Index 21.46 03/16/2024 1:05 PM EDT Plan of Treatment Health Maintenance Due Date Last Done Comments Influenza Vaccines (#1) 2024 08/05/19 24, 10/10/2020, 05/03/2016, Additional history exists COVID-19 Vaccine ( season) 2024 11/29/2020, 11/01/2020 Chlamydia and Gonorrhea Screening 07/04/2024 03/08/2024, 03/08/2024, 08/05/2023, Additional history exists Men B Vaccine (2 of 2 - Trumenba SCDM 2-dose series) 09/05/2024 03/08/2024 DTaP,Tdap,and Td Vaccines (7 - Td or Tdap) 08/07/2025 08/07/2015, 08/02/2007, 08/02/2007, Additional history exists Hepatitis B Vaccines Completed 01/16/2004, 2003, 2003 Pneumococcal Vaccine Aged Out 01/16/2004, 2003, 2003 No longer eligible based on patient's age to complete this topic HIB Vaccines Completed 03/08/2006, 01/01, 2003, Additional history exists IPV Vaccines Completed 08/02/2007, 02/2005, 01/16/2004, Additional history exists MMR Vaccines Completed 08/02/2007, 08/10/2004 Varicella Vaccines Completed 08/02/2007, 08/10/2004 HPV Vaccines Completed 10/18/2016, 03/05, 08/07/2015 Hepatitis A Vaccines Completed 10/18/2016, 03/25/20 16 Meningococcal Vaccine Completed 02/06/2020, 016 HIV Screening Completed 12/07/2022, 10/07/2022 Hepatitis C Screening Completed 12/07/2022, 023 Procedures * The patient is currently admitted. The information in this section might not be complete until the patient is discharged.Due to [facility] law, this organization might not be sharing sensitive test results. Procedure Name Priority Date/Time Associated Diagnosis Comments CHLAMYDIA TRACHOMATIS, AMPLIFIED Routine 03/08/2024 11:03 AM EDT Encounter for screening examination for sexually transmitted disease HEPATITIS C ANTIBODY WITH REFLEX TO HCV, RNA, QUANT, RT PCR Routine 12/07/2022 10:23 AM EDT Well adult exam from Last 3 Months or Most Recently Relevant to Health Maintenance Results * Due to [facility] law, this organization might not be sharing sensitive test results. * Chlamydia trachomatis, Amplified (03/08/2024 11:03 AM EDT) CHLAMYDIA, DNA PROBE NEGATIVE NEGATIVE [facility] Urine (Urine) 03/08/2024 11: 03 AM EDT 03/08/2024 12:24 PM EDT [facility] - 03/08/2024 2:50 PM EDT [facility] [address] [facility] [id number] Zeina Mcdonald MD LAB BLOOD ORDERAB LES Final Result [facility] * Hepatitis C antibody (12/07/2022 10:23 AM EDT) Hepatitis C Antibody NEGATIVE NEGATIVE [facility] Blood 12/07/2022 10:2 3 AM EDT 12/07/2022 10:23 AM EDT [facility] - 12/07/2022 1:28 PM EDT [facility] [address] [facility] [id number] Mohs Surgeon - Jyoti Green MD us Jacqueline Tali [employer] LAB BLOOD ORDERABLES Final Resul t [facility] from Last 3 Months or Most Recently Relevant to Health Maintenance Insurance [employer] Care Teams Formulation Chemist Relationship Specialty Start Date End Date Zeina Gauthier MD [address] [place] [id number] PCP - General 06/15/17
--- NOTE | 2024-08-12 10:13 | ED_ITS ---
HPI - General Adult General Chief complaint: Psychiatric Symptoms Stated complaint: vomitting Time Seen by Provider: 08/12/24 10:13 Source: patient and family (patient's mother) Mode of arrival: ambulatory Limitations: no limitations History of Present Illness ED Provider: Anamika Wolfe PA-C HPI narrative: Patient is a 19 year old assigned female at with no reported medical history presenting to the emergency department today with nausea, depression, anxiety, and suicidal ideation. Patient states that over the last day she has felt much more anxious, depressed, and suicidal with nausea and vomiting. Patient denies any dizziness, lightheadedness, abdominal pain, fever, chills, blurry vision, double vision, loss of vision, chest pain, difficulty breathing, shortness of breath, back pain, night sweats, pain with urination, increased urinary frequency, increased urinary urgency, blood in her urine or stool, syncope or a near syncopal episode, recent trauma or falls, bowel incontinence, bladder incontinence, or any other complaints at this time. Relieving factors: none Exacerbating factors: none Associated symptoms: denies other symptoms Treatments prior to arrival: none Related Data Previous Rx's ?Medication ?Instructions ?Recorded ondansetron 4 mg disintegrating 4 mg PO Q6H PRN nausea and 05/15/23 tablet vomiting #14 tabs hydroxyzine HCl 25 mg tablet 25 mg PO BEDTIME PRN anxiety #10 03/05/24 tabs ondansetron HCl 4 mg tablet 4 mg PO Q8H PRN nausea and 03/05/24 vomiting #14 tabs hydroxyzine HCl 25 mg tablet 25 mg PO TID PRN anxiety #7 tabs 08/12/24 Allergies Allergy/AdvReac Type Severity Reaction Status Date / Time No Known Allergies Allergy Verified 08/12/24 09:48 Review of Systems 2 Constitutional: Constitutional: Reports no additional constitutional complaints, Denies chills, Denies fever(s) and Denies night sweats Eyes: Eyes: Reports no additional eye complaints, Denies blurry vision, Denies change in vision, Denies diplopia, Denies eye discharge, Denies loss of vision and Denies eye pain ENT: Denies dizziness Cardiovascular: Cardiovascular: Reports no additional cardiovascular complaints, Denies chest pain, Denies lightheadedness, Denies Loss of Consciousness and Denies dyspnea Respiratory: Respiratory: Reports no additional respiratory complaints and Denies dyspnea Gastrointestinal: Gastrointestinal: Reports no additional gastrointestinal complaints, Denies abdominal pain, Denies melena, Denies hematochezia, Denies change in bowel habits, Denies change in stool character, Reports nausea and Reports vomiting Genitourinary: Genitourinary: Denies hematuria, Denies urinary frequency, Denies dysuria, Denies urinary incontinence, Denies urinary hesitancy and Denies urinary urgency Musculoskeletal: Musculoskeletal: Reports no additional musculoskeletal complaints, Denies numbness and Denies tingling Neurologic: Denies dizziness, Denies loss of vision, Denies numbness and Denies tingling Psychiatric: Psychiatric: Reports no additional psychiatric complaints, Reports anxiety, Reports depression, Denies homicidal ideation and Reports suicidal ideation Endocrine: Endocrine: Reports no additional endocrine complaints Hematologic/Lymphatic: Hematologic/Lymphatic: Reports no additional hematologic/lymphatic complaints Allergic/Immunologic: Allergic/Immunologic: Reports no additional allergic/immunologic complaints PMFSH Past Medical History Attestation statement: The following information was validated with the patient. Source: old records reviewed and nursing notes reviewed Social History Social History Advance Directives: No Advance Directives Information Provided: No Do you have a plan to hurt others: No Plan Physical Exam ED Vital Signs: Vital Signs - 24 hr 08/12/24 09:43 Temperature 97 F Pulse Rate 62 Respiratory Rate 18 Blood Pressure 151/98 H Pulse Oximetry 100 Oxygen Delivery Method Room Air BMI result Body Mass Index 22.9 Const General: cooperative, no acute distress, alert and awake Nutritional Appearance: well nourished Orientation/consciousness: patient oriented x3 Limitations: no limitations [facility] Head: Yes normal to inspection and Yes atraumatic Ears: hearing grossly normal bilaterally and external ears normal General nose exam: Normal external nose present, no nasal discharge noted and no epistaxis Face and sinus: Yes normal facial exam, No abrasion and No laceration Mouth: Normal oral and palatal mucosa present, no drooling and no muffled voice Eyes General: appearance normal, both eyes and all related structures Periorbital: periorbital findings normal Eyelids: Yes eyelids normal Conjunctivae: conjunctivae normal Pupils: Equal, round and reactive pupils present EOM: EOMs intact bilaterally Neck Neck: Yes normal visual inspection, Yes full ROM and Yes no lymphadenopathy Chest Chest palpation & inspection: normal inspection of the chest Resp Effort & Inspection: normal respiratory effort and able to speak in complete sentences GI Inspection: Yes normal to inspection Neuro General: patient oriented x3, moves all extremities and CN's II-XI intact bilaterally Cranial nerves: Yes Equal, round and reactive pupils present Cognition (Neuro): normal cognition Extrem Other: multiple very superficial lacerations to the left wrist - mostly healed, no gaping areas. General: Yes full ROM and Yes capillary refill normal Psych Appearance: grossly normal Mental Status: mental status grossly normal Affect: normal affect Attitude: cooperative Thought process: Normal thought process present Thought content: Normal thought content present Insight: Good insight present (Psych) Medical Decision Making Medical Decision Making MDM Narrative: Patient is a 19 year old assigned female at with no reported medical history presenting to the emergency department today with nausea, depression, anxiety, and suicidal ideation. Patient's physical exam was as noted in the physical exam portion of this note. Patient's blood work was unremarkable. I explained my physical exam findings as well as all test results to the patient and the patient's mother. I answered all questions asked by the patient and the patient's mother. Patient's disposition is pending CARE team evaluation. 1254 ---> Patient evaluated by CARE team who recommended discharge home with mother. States that the patient contracts for safety and has good supports. Differential Diagnosis Differential Diagnoses: The differential diagnosis associated with the presentation includes Nausea Vomiting Anxiety Depression Suicidal ideation Admission/Observation Consideration of admission/observation: Escalation of care including admission/observation considered Patient would have been admitted to the hospital had her work up had any findings where hospital admission was appropriate and her clinical presentation warranted hospital admission. Consult Healthcare Provider Management of the patient was discussed with: Behavioral Health Provider (spoke with the CARE Team as noted in the MDM Rationale portion of this note.) Lab Data [facility] Lab Attestation statement: I reviewed the patient's lab results. My interpretation of these results are in the MDM Rationale portion of this note. 08/12/24 10:10 08/12/24 10:10 Labs: Lab Results 08/12/24 08/12/24 Range/Units 10:10 10:32 WBC 4.8 (4.8-10.8) X10*3/uL RBC 4.58 (4.20-5.50) X10*6/uL Hgb 13.7 (12.0-16.0) g/dl Hct 40.2 (37.0-47.0) % MCV 87.8 (80.0-98.0) fL MCH 29.9 (27.0-33.0) pg MCHC 34.1 (31.0-35.0) g/dl RDW 12.1 (11.0-16.0) % Plt Count 285 (160-400) X10*3/uL MPV 10.9 (9.4-12.3) fL Immature Gran % (Auto) 0.2 (0.0-0.4) % Neut % (Auto) 70.2 (45-73) % Lymph % (Auto) 19.3 L (20-40) % [place] % (Auto) 9.1 (2-11) % Eos % (Auto) 0.6 (0-4) % Baso % (Auto) 0.6 (0-2) % Lymph # (Auto) 0.9 L (1.2-4.9) X10*3/uL [place] # (Auto) 0.4 (0.1-1.2) X10*3/uL Eos # (Auto) 0.0 (0.0-0.4) X10*3/uL Baso # (Auto) 0.0 (0.0-0.2) X10*3/uL Abs Immat Gran (auto) 0.01 (0.00-0.03) X10*3/uL Absolute Neuts (auto) 3.4 (2.0-8.3) x10*3/uL Absolute Nucleated RBC 0.000 (0.0-0.012) X10*3/uL Nucleated RBC % (auto) 0.0 (0.0-0.2) /100WBC Sodium 141 (135-145) mmol/L Potassium 3.8 (3.3-5.1) mmol/L Chloride 107 (96-108) mmol/L Carbon Dioxide 23 (22-29) mmol/L Anion Gap 15 (12-20) BUN 9 (9-16) mg/dL Creatinine 0.78 (0.5-1.4) mg/dL Estim Creat Clear Calc 98.5 Estimated GFR > 60 Random Glucose 117 H (60-115) mg/dL Calcium 9.6 (8.4-10.2) mg/dL Total Bilirubin 2.1 H (0.0-1.0) mg/dL AST 19 (5-31) U/L ALT 8 (0-31) U/L Alkaline Phosphatase 52 (39-117) U/L Total Protein 8.1 H (6.5-8.0) g/dL Albumin 4.8 (3.5-5.0) g/dL Beta HCG, Quant < 2 mIU/mL Urine Color Yellow Urine Appearance Clear Urine pH 7.5 (5.0-9.0) Ur Specific [place] 1.020 (1.005-1.025) Urine Protein 30 (1+) H (Neg-Trace) mg/dL Urine Glucose (UA) Negative (Negative) mg/dL Urine Ketones 80 (Negative) mg/dL Urine Blood Negative (Negative) Urine Nitrite Negative (Negative) Ur Leukocyte Esterase Negative (Negative) Urine RBC 0-2 (0-2) /HPF Urine WBC 0-5 (0-5) /HPF Ur Squamous Epith Cells 6-10 (0-2) /HPF Urine Bacteria None Seen (None Seen) Hyaline Casts 0-2 (0-2) /LPF Salicylates < 5.0 L (15-30) mg/dL Urine Opiates Screen Not Detected (Not Detect) Ur Buprenorphine Scrn Not Detected (Not Detect) ng/mL Ur Oxycodone Screen Not Detected (Not Detect) ng/mL Urine Methadone Screen Not Detected (Not Detect) ng/mL Urine Fentanyl Screen Not Detected (Not Detect) Acetaminophen < 3 (<30) mcg/mL Ur Barbiturates Screen Not Detected (Not Detect) Ur Phencyclidine Scrn Not Detected (Not Detect) Ur Amphetamines Screen Not Detected (Not Detect) U Benzodiazepines Scrn Not Detected (Not Detect) Urine Cocaine Screen Not Detected (Not Detect) U Marijuana (THC) Screen POSITIVE H (Not Detect) Ethyl Alcohol < 10 mg/dL Influenza Type A (PCR) NEGATIVE (Negative) Influenza Type B (PCR) NEGATIVE (Negative) RSV RNA Qual (PCR) NEGATIVE (Negative) SARS-CoV-2 RNA (RT-PCR) NEGATIVE (Negative) Independent Historian Clinical information obtained from an independent historian. History obtained from or confirmed by: Parent (patient's mother provided additional history and confirmed the history provided by the patient.) Discharge Plan Discharge Clinical Impression: Depression, Acute anxiety Patient Disposition: Home, Self-Care Instructions: Depression (DC), Anxiety (ED) Additional Instructions: Follow up with your primary care provider. Return to the emergency department immediately if your symptoms worsen or if you develop any dizziness, shortness of breath, difficulty breathing, chest pain, blurry vision, loss of vision, nausea, vomiting, abdominal pain, fever, chills, back pain, or any other complaints. Prescriptions: New hydroxyzine HCl 25 mg tablet 25 mg PO TID PRN (Reason: anxiety) Qty: 7 0RF No Action ondansetron HCl 4 mg tablet 4 mg PO Q8H PRN (Reason: nausea and vomiting) Qty: 14 0RF hydroxyzine HCl 25 mg tablet 25 mg PO BEDTIME PRN (Reason: anxiety) Qty: 10 0RF ondansetron 4 mg tablet,disintegrating 4 mg PO Q6H PRN (Reason: nausea and vomiting) Qty: 14 0RF Referrals: [facility] Family Medicine [Provider Group] (Call to establish and follow up with a primary care provider. If you already have a primary care provider, please follow up with them.) [facility] Primary CareLuis Fernando [Provider Group] (Call to establish and follow up with a primary care provider. If you already have a primary care provider, please follow up with them.) [facility] Primary CareRaquel [Provider Group] (Call to establish and follow up with a primary care provider. If you already have a primary care provider, please follow up with them.) [facility] Primary CareOsman [Provider Group] (Call to establish and follow up with a primary care provider. If you already have a primary care provider, please follow up with them.) Print Language: Yi
[2024-08-12 10:16] LABS: MANUAL DIFF FLAG NO
[2024-08-12 10:17] LABS: Basophils Percent Auto 0.6 % (0-2); Eosinophils Percent Auto 0.6 % (0-4); Hematocrit 40.2 % (37.0-47.0); Hemoglobin 13.7 g/dl (12.0-16.0); Imm Gran Abs Auto 0.01 X10*3/uL (0.00-0.03); Imm Gran Pct Auto 0.2 % (0.0-0.4); Lymphocytes Absolute Auto 0.9 X10*3/uL (1.2-4.9); Lymphocytes Percent Auto 19.3 % (20-40); Mean Corpuscular HGB Conc 34.1 g/dl (31.0-35.0); Mean Corpuscular Hemoglobin 29.9 pg (27.0-33.0); Mean Corpuscular Volume 87.8 fL (80.0-98.0); Mean Platelet Volume 10.9 fL (9.4-12.3); Monocytes Absolute Auto 0.4 X10*3/uL (0.1-1.2); Monocytes Percent Auto 9.1 % (2-11); Neutrophils Absolute Auto 3.4 x10*3/uL (2.0-8.3); Neutrophils Percent Auto 70.2 % (45-73); Platelet Count 285 X10*3/uL (160-400); Red Blood Count 4.58 X10*6/uL (4.20-5.50); Red Cell Distribution Width 12.1 % (11.0-16.0); White Blood Count 4.8 X10*3/uL (4.8-10.8)
[2024-08-12 10:39] LABS: Appearance Urine Clear; Color Urine Yellow; Glucose Urine UA Negative (Negative); Leukocyte Esterase Urine Negative (Negative); Nitrite Urine Negative (Negative); PH 7.5 (5.0-9.0); UMIC TRIGGER UA YES; Urine Blood Negative (Negative); Urine Ketones 80 mg/dL (Negative); Urine Protein 30 (1+) mg/dL (Neg-Trace)
[2024-08-12 10:43] LABS: Acetaminophen LAB < 3 mcg/mL (<30); Alanine Aminotransferase 8 U/L (0-31); Albumin Level 4.8 g/dL (3.5-5.0); Alkaline Phosphatase 52 U/L (39-117); Anion Gap 15 (12-20); Aspartate Amino Transferase 19 U/L (5-31); Bilirubin Total 2.1 mg/dL (0.0-1.0); Blood Urea Nitrogen 9 mg/dL (9-16); Calcium 9.6 mg/dL (8.4-10.2); Carbon Dioxide 23 mmol/L (22-29); Chloride 107 mmol/L (96-108); Creatinine Clr Calc Pharmacy 98.5; Estimated Glomerular Filt Rate > 60; Ethanol < 10 mg/dL; Glucose Random 117 mg/dL (60-115); HCG Quantitative < 2 mIU/mL; Potassium 3.8 mmol/L (3.3-5.1); Salicylate < 5.0 mg/dL (15-30); Sodium 141 mmol/L (135-145); Total Protein 8.1 g/dL (6.5-8.0)
[2024-08-12 10:44] LABS: Bacteria Urine None Seen (None Seen); Hyaline Casts Urine 0-2 /LPF (0-2); RBC Urine 0-2 /HPF (0-2); WBC Urine 0-5 /HPF (0-5)
[2024-08-12 10:49] LABS: Amphetamine Screen Urine Not Detected (Not Detect); Barbiturates, Urine Not Detected (Not Detect); Benzodiazepines Screen Urine Not Detected (Not Detect); Buprenorphine Scr Not Detected (Not Detect); Cannabinoid Screen Urine POSITIVE (Not Detect); Cocaine Screen Urine Not Detected (Not Detect); Fentanyl, urine Not Detected (Not Detect); Methadone Screen, Urine Not Detected (Not Detect); Opiate Screen Urine Not Detected (Not Detect); Oxycodone Screen Urine Not Detected (Not Detect); Phencyclidine Screen Urine Not Detected (Not Detect)
[2024-08-12 10:54] LABS: Influenza A PCR NEGATIVE (Negative); Influenza B PCR NEGATIVE (Negative); Resp Syncy Virus RNA Qual PCR NEGATIVE (Negative); SARS COV2 PCR INHOUSE NEGATIVE (Negative)
--- NOTE | 2024-08-12 13:23 | MHC.CARE ---
Pt referred to N for follow up. Pt is aware and agreeable,, copy of safety plan provided
[2024-08-12 13:33] VITALS: BP 136/78; PULSE 72; RESP 18; TEMP 36.7; O2SAT 100
[2024-08-12 13:34] VITALS: BP 136/78; PULSE 72; RESP 18; TEMP 36.7; O2SAT 100
== END 2024-08-12 13:35 | disposition home or self-care (01) ==
PROVIDERS: Physician Assistant Medical; Emergency Provider Emergency Medicine
DX: F33.1 Major depressive disorder, recurrent, moderate (principal); F41.9 Anxiety disorder, unspecified; R94.31 Abnormal electrocardiogram [ECG] [EKG]; Z51.81 Encounter for therapeutic drug level monitoring; Z03.818 Encounter for observation for suspected exposure to other biological agents ruled out; Z79.899 Other long term (current) drug therapy
CPT/HCPCS: 0241U; 36415; 80053; 80143; 80179; 80307; 81001; 84702; 85025; 93005; 99285; S9485

== ENCOUNTER → 2024-08-12 10:06 | Outpatient (BNV) | payer MEDICAID, SELFPAY | PROVIDERS: Emergency Provider Emergency Medicine; Visit Provider Internal Medicine Cardiovascular Disease | DX: R10.9 Unspecified abdominal pain (principal) | CPT/HCPCS: 93010 ==